=== PATIENT | female | born 1960 | race Caucasian/White ===

== ENCOUNTER → 2018-08-12 | Outpatient (CLI) | payer OTHER ==
--- NOTE | 2018-08-13 14:53 | MM ---
Reason for exam: screening (asymptomatic). Last mammogram was performed 3 years and 11 months ago. History: Patient is postmenopausal. Family history of breast cancer in maternal aunt. Benign ultrasound-guided core biopsy of the left breast, June 16, 2003. Core biopsy of the left breast. Took estrogen for 5 months. Took progesterone for 5 months. Physical Findings: A clinical breast exam by your physician is recommended on an annual basis and results should be correlated with mammographic findings. MG 3D Screening Mammo W/Cad Bilateral CC and MLO view(s) were taken. Prior study comparison: August 29, 2014, bilateral MG screening mammo w CAD. August 12, 2012, bilateral digital screening mammo w/CAD. The breast tissue is heterogeneously dense. This may lower the sensitivity of mammography. Previous mammotome biopsy in the left breast. There is no discrete abnormality. ASSESSMENT: Benign, BI-RAD 2 RECOMMENDATION: Routine screening mammogram of both breasts in 1 year.
== END | disposition home or self-care (01) ==
LOC: RADMAMWWP 16:04
PROVIDERS: ATTEND Internal Medicine
DX: Z12.31 Encounter for screening mammogram for malignant neoplasm of breast (principal)
CPT/HCPCS: 77063; 77067

== ENCOUNTER → 2018-12-16 | Outpatient (CLI) | payer OTHER ==
[2018-12-16 16:02] LABS: Albumin 4.6 g/dL (3.80-4.90); Albumin/Globulin Ratio 2.19 (1.60-3.17); Anion Gap 7.9 mmol/L (4.00-12.00); Calcium 9.8 mg/dL (8.7-10.3); Carbon Dioxide 25.1 mmol/L (21.6-31.8); Globulin 2.1 g/dL (1.6-3.3); Total Bilirubin 0.4 mg/dL (0.2-1.2); Total Protein 6.7 g/dL (6.2-8.2)
[2018-12-16 17:23] LABS: Hemoglobin A1C 6.2 % (4.0-6.0)
== END | disposition home or self-care (01) ==
LOC: LABWHC1 09:47
PROVIDERS: ATTEND Internal Medicine Clinical Cardiac Electrophysiology
DX: I10 Essential (primary) hypertension (principal); E78.5 Hyperlipidemia, unspecified; K85.90 Acute pancreatitis without necrosis or infection, unspecified; E11.9 Type 2 diabetes mellitus without complications
CPT/HCPCS: 36415; 80053; 82550; 83036; 83690

== ENCOUNTER 2020-04-17 11:40 | Emergency (ER) | payer OTHER ==
[2020-04-17 11:52] VITALS: BP 157/81; PULSE 96; RESP 18; TEMP 98.1
[2020-04-17] MEDS ORDERED: ONDANSETRON ODT 4 MG TAB PO STA (12:41)
[2020-04-17] MEDS ORDERED: MECLIZINE 12.5 MG TAB PO STA (12:41)
--- NOTE | 2020-04-17 13:23 | CT ---
EXAMINATION TYPE: CT brain wo con DATE OF EXAM: 04/17/2020 HISTORY: Head following injury yesterday with headache CT DLP: 1114.4 mGycm. Automated Exposure Control for Dose Reduction was Utilized. TECHNIQUE: CT scan of the head is performed without contrast. COMPARISON: MRI brain July 31, 2012 FINDINGS: There is no acute intracranial hemorrhage or midline shift identified. There ventricles a nd sulci are within normal limits in size for patient's age. Jorgensen-white matter differentiation fairly well maintained. The calvarium is intact. The globes are intact and the visualized sinuses are aidee r. IMPRESSION: No acute intracranial hemorrhage or midline shift. No significant change from prior MRI.
--- NOTE | 2020-04-17 13:32 | ED ---
Head Injury HPI - General Chief complaint: Head Injury Stated complaint: fall, head injury Time Seen by Provider: 04/17/20 11:58 Source: patient, RN notes reviewed Mode of arrival: ambulatory Limitations: no limitations - History of Present Illness Initial comments: 60-year-old female presents emergency Department chief complaint head injury. Patient that she fell yesterday proximal male foot to foot high object. Patient did strike her head. She is conscious. Patient states she developed a headache today and some dizziness. Patient went to her PCP who recommended come emergency department for CT. Patient has some mild went of nausea headache denies a pop issues, chest pain, blurred vision, focal weakness. Patient is not taking any blood thinners other than aspirin. Patient offers no other complaints. Denies neck pain. - Related Data Allergies/Adverse reactions: Allergies Allergy/AdvReac Type Severity Reaction Status Date / Time Penicillins Allergy Unknown Verified 04/17/20 11:53 Childhood Review of Systems ROS Statement: Those systems with pertinent positive or pertinent negative responses have been documented in the HPI. ROS Other: All systems not noted in ROS Statement are negative. Past Medical History Past Medical History: Diabetes Mellitus, Hyperlipidemia, Hypertension History of Any Multi-Drug Resistant Organisms: None Reported Past Surgical History: Section, Hysterectomy Past Psychological History: No Psychological Hx Reported Smoking Status: Current every day smoker Past Alcohol Use History: None Reported Past Drug Use History: None Reported General Exam Limitations: no limitations General appearance: alert, in no apparent distress Head exam: Present: atraumatic, normocephalic, normal inspection Eye exam: Present: normal appearance, PERRL, EOMI. Absent: scleral icterus, conjunctival injection, periorbital swelling ENT exam: Present: normal exam, normal oropharynx, mucous membranes moist Neck exam: Present: normal inspection, full ROM. Absent: tenderness, meningismus, lymphadenopathy Respiratory exam: Present: normal lung sounds bilaterally. Absent: respiratory distress, wheezes, rales, rhonchi, stridor Cardiovascular Exam: Present: regular rate, normal rhythm, normal heart sounds. Absent: systolic murmur, diastolic murmur, rubs, gallop, clicks Extremities exam: Present: normal inspection, full ROM, normal capillary refill. Absent: tenderness, pedal edema, joint swelling, calf tenderness Neurological exam: Present: alert, oriented X3, CN II-XII intact, reflexes normal, other (Finger to nose intact bilaterally without overshooting). Absent: motor sensory deficit Course Vital Signs 04/17/20 11:47 Temperature 98.1 F Pulse Rate 96 Respiratory 18 Rate Blood Pressure 157/81 O2 Sat by Pulse 99 Oximetry Disposition Clinical Impression: Head injury Disposition: HOME SELF-CARE Condition: Stable Instructions (If sedation given, give patient instructions): Concussion (ED) Additional Instructions: Please return to the Emergency Department if symptoms worsen or any other concerns. Is patient prescribed a controlled substance at d/c from ED?: No Referrals: Ramos Bello MD [Primary Care Provider] - 1-2 days Time of Disposition: 13:32
== END 2020-04-17 13:40 | disposition home or self-care (01) ==
LOC: EC 11:40
DX: S09.90XA Unspecified injury of head, initial encounter (principal); F17.200 Nicotine dependence, unspecified, uncomplicated; Z88.0 Allergy status to penicillin; W18.09XA Striking against other object with subsequent fall, initial encounter
CPT/HCPCS: 70450; 99283

== ENCOUNTER → 2020-06-15 | Outpatient (CLI) | payer OTHER ==
[2020-06-15 19:05] LABS: African American GFR (CKD) 92.9 (60.0-200.0); BUN/Creat Ratio 18.75 Ratio (12.00-20.00); Calcium 9.6 mg/dL (8.7-10.3); Chol/HDL Ratio 3.56; LDL Cholesterol,Calculated 45.2 mg/dL (0.0-131.0); Non-African American GFR(CKD) 80.1 (60.0-200.0); Potassium 4.4 mmol/L (3.5-5.5); VLDL Calculation 77.8 mg/dL (5.00-40.00)
== END | disposition home or self-care (01) ==
LOC: LABWHC1 13:41
PROVIDERS: ATTEND Physician Assistant
DX: E78.5 Hyperlipidemia, unspecified (principal); I65.29 Occlusion and stenosis of unspecified carotid artery
CPT/HCPCS: 36415; 80048; 80061

== ENCOUNTER → 2020-07-04 | Outpatient (CLI) | payer OTHER ==
[2020-07-04 08:29] LABS: African American GFR (CKD) >90 (>60 ml/min/1.73 sqM); Blood Urea Nitrogen 13 mg/dL (7-17); Non-African American GFR(CKD) >90 (>60 ml/min/1.73 sqM)
--- NOTE | 2020-07-04 10:23 | CT ---
EXAMINATION TYPE: CT angio neck DATE OF EXAM: 07/04/2020 COMPARISON: None HISTORY: 60-year-old female I65.29, carotid stenosis TECHNIQUE: Contiguous axial scanning of the neck performed with IV Contrast, patient injected with 10 0 mL of Isovue 370. Coronal/sagittal MIP reconstructions performed. 3-D reconstructions generated on a dedicated independent workstation. CT DLP: 190 mGycm Automated exposure control for dose reduction was used. FINDINGS: Prominent but nonenlarged 8 mm short axis left superior mediastinal lymph node. Bovine configuration to the aortic arch. Right vertebral artery is dominant. There may be mild atherosclerotic narrowing at the right vertebra l artery origin. Otherwise, the vertebral arteries appear patent throughout their course. The right common carotid artery is patent. There is soft plaque circumferentially narrowing the right carotid bulb down to approximately 1.8 mm. This appears to be an approximate 60-69% stenosis. Remainder of the right ICA is patent. Left common carotid artery is patent. Minimal atelectatic calcification left carotid bulb. Left internal carotid artery otherwise patent. Prominent hazy atelectasis in the visualized upper lungs and minimal emphysematous change. [facility] within the mid to lower cervical spine. IMPRESSION: A MODERATE, APPROXIMATELY 60-69% PROXIMAL RIGHT ICA STENOSIS SECONDARY TO CIRCUMFERENTIAL SOFT PLAQUE . #2 DOMINANT RIGHT VERTEBRAL ARTERY WITH MILD NARROWING AT THE VESSEL ORIGIN.
== END | disposition home or self-care (01) ==
LOC: RADCTMAIN 07:31
PROVIDERS: ATTEND Internal Medicine Clinical Cardiac Electrophysiology
DX: I65.21 Occlusion and stenosis of right carotid artery (principal); I65.01 Occlusion and stenosis of right vertebral artery
CPT/HCPCS: 82565; 84520; 70498; 36415; Q9967

== ENCOUNTER → 2020-10-11 | Outpatient (CLI) | payer OTHER ==
[2020-10-11 22:03] LABS: African American GFR (CKD) 80.5 (60.0-200.0); Albumin 4.7 g/dL (3.80-4.90); Albumin/Globulin Ratio 2.35 (1.60-3.17); Anion Gap 6.2 mmol/L (4.00-12.00); Bilirubin, Conjugated 0.2 mg/dL (0.20-0.40); Bilirubin,Unconjugated 0.3 mg/dL; Carbon Dioxide 20.8 mmol/L (21.6-31.8); Chol/HDL Ratio 2.61; LDL Cholesterol,Calculated 46.6 mg/dL (0.0-131.0); Non-African American GFR(CKD) 69.5 (60.0-200.0); Potassium 4.8 mmol/L (3.5-5.5); Total Bilirubin 0.5 mg/dL (0.3-1.2); Total Protein 6.7 g/dL (6.2-8.2); VLDL Calculation 24.4 mg/dL (5.00-40.00)
[2020-10-11 22:06] LABS: Hemoglobin A1C 7.8 % (4.0-6.0)
== END | disposition home or self-care (01) ==
LOC: LABWHC1 10:02
PROVIDERS: ATTEND Internal Medicine Clinical Cardiac Electrophysiology
DX: E11.9 Type 2 diabetes mellitus without complications (principal); E78.5 Hyperlipidemia, unspecified; I10 Essential (primary) hypertension; R00.2 Palpitations
CPT/HCPCS: 36415; 80051; 80061; 80076; 82565; 82947; 83036; 84443; 84520

== ENCOUNTER → 2021-06-18 | Outpatient (CLI) | payer OTHER ==
[2021-06-18 14:06] LABS: HCT 36.3 % (37.2-46.3); HGB 11.6 g/dL (12.0-15.0); MCH 30.6 pg (27.0-32.0); MCV 95.8 fL (80.0-97.0); Mean Platelet Volume 9.7 fL (9.5-12.2); Platelet Count 402 X 10*3/uL (140-440); RBC 3.79 X 10*6/uL (4.10-5.20); RDW 14.6 % (11.5-14.5); WBC 11.65 X 10*3/uL (4.50-10.00)
[2021-06-18 14:49] LABS: African American GFR (CKD) 92.2 (60.0-200.0); Albumin 4.5 g/dL (3.80-4.90); Albumin/Globulin Ratio 2.05 (1.60-3.17); Anion Gap 6.5 mmol/L (4.00-12.00); BUN/Creat Ratio 27.5 Ratio (12.00-20.00); Calcium 9.2 mg/dL (8.7-10.3); Carbon Dioxide 21.5 mmol/L (21.6-31.8); Chol/HDL Ratio 3.05; Globulin 2.2 g/dL (1.6-3.3); LDL Cholesterol,Calculated 46.2 mg/dL (0.0-131.0); Non-African American GFR(CKD) 79.6 (60.0-200.0); Potassium 5.1 mmol/L (3.5-5.5); Total Bilirubin 0.4 mg/dL (0.3-1.2); Total Protein 6.7 g/dL (6.2-8.2); VLDL Calculation 35.8 mg/dL (5.00-40.00)
[2021-06-18 14:58] LABS: T4, Free (Free Thyroxine) 1.2 ng/dL (0.80-1.80)
[2021-06-18 17:07] LABS: Hemoglobin A1C 6.9 % (4.0-6.0)
[2021-06-21 02:32] LABS: % Iron Saturation 15.59 (12.00-45.00)
== END | disposition home or self-care (01) ==
LOC: LABWHC1 09:50
PROVIDERS: ATTEND Internal Medicine
DX: E11.9 Type 2 diabetes mellitus without complications (principal); E78.5 Hyperlipidemia, unspecified; R53.82 Chronic fatigue, unspecified
CPT/HCPCS: 36415; 80053; 80061; 82306; 82607; 83036; 83540; 83550; 84439; 84443; 84481; 85027

== ENCOUNTER → 2021-08-27 | Outpatient (CLI) | payer BC ==
--- NOTE | 2021-08-27 16:10 | XR ---
EXAMINATION TYPE: XR chest 2V DATE OF EXAM: 08/27/2021 COMPARISON: Chest x-ray 03/11/2010 HISTORY: Chest pain TECHNIQUE: Frontal and lateral views of the chest are obtained. FINDINGS: There is no focal air space opacity, pleural effusion, or pneumothorax seen. The cardiac silhouette size is within normal limits. The osseous structures are intact. IMPRESSION: No acute cardiopulmonary process.
--- NOTE | 2021-08-27 16:10 | XR ---
Right shoulder HISTORY: Pain 3 views of the right shoulder There is acromioclavicular joint arthropathy change present. Bone mineralization is reduced. Alignmen t shows the inferior aspect of the distal clavicle slightly inferior displaced in relation to the acr omion. Glenohumeral joint is maintained. Right lung apex as visualized is normal. IMPRESSION: No acute fracture or dislocation. There is acromioclavicular joint arthropathy, additiona l imaging could be performed as indicated to assess for acromial clavicular joint alignment.
== END | disposition home or self-care (01) ==
LOC: RADXRMAIN 14:35
PROVIDERS: ATTEND Internal Medicine
DX: R07.9 Chest pain, unspecified (principal); M12.811 Other specific arthropathies, not elsewhere classified, right shoulder
CPT/HCPCS: 71046

== ENCOUNTER → 2021-12-14 | Outpatient (CLI) | payer BC ==
--- NOTE | 2021-12-14 14:35 | XR ---
EXAMINATION TYPE: XR sinus DATE OF EXAM: 12/14/2021 CLINICAL HISTORY: Facial pain , headache. TECHNIQUE: Will and lateral image of the skull are obtained. COMPARISON: None. FINDINGS: The paranasal sinuses including the frontal and maxillary sinuses appear well aerated witho ut distinct abnormal opacification. Orbital floors and de la o are intact. Facial bones appear intact . IMPRESSION: No convincing radiographic evidence for sinusitis. If there is high clinical suspicion c onsider CT of the sinuses.
== END | disposition home or self-care (01) ==
LOC: RADXRMAIN 13:59
PROVIDERS: ATTEND Internal Medicine
DX: R51.9 Headache, unspecified (principal)
CPT/HCPCS: 70220

== ENCOUNTER → 2022-01-22 | Outpatient (CLI) | payer BC ==
--- NOTE | 2022-01-22 08:57 | CT ---
EXAMINATION TYPE: CT sinus wo con DATE OF EXAM: 01/22/2022 COMPARISON: CT dated 04/17/2020 HISTORY: Chronic Sinusitis CT DLP: 567 mGycm. Automated Exposure Control for Dose Reduction was Utilized. TECHNIQUE: CT scan of the sinuses is performed without contrast, axial images are obtained, coronal r eformatted images are also reviewed. FINDINGS: Deviated bony nasal septum convex to the left side with a tiny bony spur. Paradoxical middle turbinat es. Unremarkable inferior turbinates. No significant mucosal thickening of the nasal fossa bilaterall y. Patent infundibulum and ostiomeatal complex bilaterally. No significant mucosal thickening of the max illary sinuses. Unremarkable frontal sinus, ethmoid air cells and sphenoid sinus. Patent sphenoethmoidal recesses. Clear mastoid air cells. Osteopenia. Unremarkable visualized portion of the brain and orbits. IMPRESSION: No evidence of acute or chronic sinusitis. Incidental findings as described above.
== END | disposition home or self-care (01) ==
LOC: RADCTMAIN 08:04
PROVIDERS: ATTEND Otolaryngology
DX: J32.9 Chronic sinusitis, unspecified (principal)
CPT/HCPCS: 70486

== ENCOUNTER → 2022-07-19 | Outpatient (CLI) | payer BC | END | disposition home or self-care (01) | LOC: RADCTMAIN 07:32 | PROVIDERS: ATTEND Internal Medicine | DX: Z13.89 Encounter for screening for other disorder (principal); G50.1 Atypical facial pain; R51.9 Headache, unspecified | CPT/HCPCS: 82565; 84520 ==